=== PATIENT | female | born 1990 | race Caucasian/White ===

== ENCOUNTER 2019-11-28 05:47 | Day surgery (SDC) | payer MEDICAID ==
[~2019-11-28] VITALS: Ht 160 cm; Wt 95.5 kg
[2019-11-28 06:25] VITALS: BP 133/76; PULSE 117; TEMP 98.6
[2019-11-28] MEDS ORDERED: NEURONTIN800 MG/TAB PO (06:42)
[2019-11-28] MEDS ORDERED: COUMADIN4 MG PO (06:42)
[2019-11-28] MEDS ORDERED: ZANAFLEX 4MG TAB4 MG PO (06:43)
[2019-11-28] MEDS ORDERED: LASIX 20MG TABL20 MG PO (06:43)
[2019-11-28] MEDS ORDERED: CARAFATE 1GM1 G PO (06:44)
[2019-11-28] MEDS ORDERED: IMITREX50 MG PO (06:45)
[2019-11-28] MEDS ORDERED: ATARAX 25MG25 MG/TAB PO (06:46)
[2019-11-28] MEDS ORDERED: TESSALON P100 MG/CAP PO (06:47)
[2019-11-28] MEDS ORDERED: SINGULAIR 110 MG/TAB PO (06:47)
[2019-11-28] MEDS ORDERED: PROAIR HFA0.09 MG/AC IH (06:48)
[2019-11-28] MEDS ORDERED: PROBIOTIC ACID1 EAC3 PO (06:49)
[2019-11-28] MEDS ORDERED: CARDIZEM LA240 MG PO (06:49)
[2019-11-28] MEDS ORDERED: ELAVIL100 MG PO (06:51)
[2019-11-28] MEDS ORDERED: RT ALBUTER2.5 MG/0.5 IH (06:51)
[2019-11-28] MEDS ORDERED: DAZIDOX20 MG PO (06:52)
[2019-11-28] MEDS ORDERED: NITROSTAT0.4 MG/TAB SL (06:53)
[2019-11-28] MEDS ORDERED: ZOFRAN8 MG PO (06:54)
[2019-11-28] MEDS ORDERED: PROTONIX 40MG T40 MG PO (06:55)
[2019-11-28] MEDS ORDERED: REGLAN 10MG10 MG/TAB PO (06:55)
[2019-11-28] MEDS ORDERED: LYRICA 25MG CAP25 MG PO (06:56)
[2019-11-28] MEDS ORDERED: FOSAMAX 35MG35 MG PO (06:56)
[2019-11-28] MEDS ORDERED: FERROUS SU325 MG/TAB PO (06:57)
[2019-11-28] MEDS ORDERED: BIOFREEZE 0.2%-1 GE1 TOP (06:58)
--- NOTE | 2019-11-28 07:30 | NUR ---
Bedside cystoscopy with suprapubic catheter change completed. Assisted patient with dressing and into wheelchair.
--- NOTE | 2019-11-28 08:00 | NUR ---
Patient dismissed to home driven by brother in law and taken to the front door per wheelchair with instructions in hand.
== END 2019-11-28 08:00 | disposition home or self-care (01) ==
LOC: SDCO 05:47
DX: N31.9 Neuromuscular dysfunction of bladder, unspecified (principal); N39.0 Urinary tract infection, site not specified; D64.9 Anemia, unspecified; G89.29 Other chronic pain; K59.00 Constipation, unspecified; J44.9 Chronic obstructive pulmonary disease, unspecified; K21.9 Gastro-esophageal reflux disease without esophagitis; G43.909 Migraine, unspecified, not intractable, without status migrainosus; I47.1 Supraventricular tachycardia; M79.7 Fibromyalgia; Z86.73 Personal history of transient ischemic attack (TIA), and cerebral infarction without residual deficits; Z86.718 Personal history of other venous thrombosis and embolism; Z79.01 Long term (current) use of anticoagulants; Z88.1 Allergy status to other antibiotic agents; Z88.8 Allergy status to other drugs, medicaments and biological substances; Z80.1 Family history of malignant neoplasm of trachea, bronchus and lung

== ENCOUNTER 2021-09-09 10:09 | Day surgery (SDC) | payer MEDICAID ==
[~2021-09-09] VITALS: Ht 160 cm; Wt 98.2 kg
[2021-09-09] VITALS (10 sets, daily range): BP systolic 106–119; BP diastolic 52–84; PULSE 84–113; TEMP 96.7–97.6
[~2021-09-09 10:09] MED LIST: AMOXICILLIN 8751 TAB PO; ATARAX 25MG25 MG/TAB PO; BIOFREEZE 0.2%-1 GE1 TOP; CARAFATE 1GM1 G PO; CARDIZEM LA240 MG PO; COLACE LIQUI10 MG/ML PO; COUMADIN4 MG PO; DAZIDOX10 MG PO; DAZIDOX20 MG PO; DOXYCYCLINE HY100 MG PO; ELAVIL100 MG PO; FERROUS SU325 MG/TAB PO; FLOMAX 0.40.4 MG/CAP PO; FOSAMAX 35MG35 MG PO; IMITREX50 MG PO; LASIX 20MG TABL20 MG PO; LEVSIN 0.10.125 MG/T SL; LYRICA 25MG CAP25 MG PO; METHENMAND1 PO; NEURONTIN800 MG/TAB PO; NITROSTAT0.4 MG/TAB SL; OMNICEF 300MG300 MG PO; PREDNISONE10 MG PO; PROAIR HFA0.09 MG/AC IH; PROBIOTIC ACID1 EAC3 PO; PROTONIX 40MG T40 MG PO; REGLAN 10MG10 MG/TAB PO; RT ALBUTER2.5 MG/0.5 IH; SINGULAIR 110 MG/TAB PO; TESSALON P100 MG/CAP PO; VITAMINC1000TA PO; ZANAFLEX 4MG TAB4 MG PO; ZOFRAN8 MG PO
[2021-09-09 11:24] LABS: MEAN CELL VOLUME 84 fl (80.0-100.0); MEAN CORPUSCULAR HGB CONC 30 g/dl (33.0-37.0); MEAN PLATELET VOLUME 9.6 fl (7.4-10.4); PLATELET COUNT 520 K/mm3 (130-400); RED BLOOD COUNT 3.52 M/mm3 (4.10-5.30); REDCELL DISTRIBUTION WIDTH-CV 14.3 % (11.5-14.5)
[2021-09-09 11:27] LABS: HEMATOCRIT 29.6 % (37.0-47.0); HEMOGLOBIN 8.9 g/dl (12.5-16.0); MEAN CORPUSCULAR HEMOGLOBIN 25 pg (27-31)
[2021-09-09 11:32] LABS: INR 1.4 (0.8-3.0); PROTHROMBIN TIME 16.5 SECONDS (9.7-12.8)
[2021-09-09 11:38] LABS: BAND 2 % (0-10); BASOPHIL 3 % (0-2); LYMPHOCYTE 16 % (20.0-51.0); MYELOCYTE 2 % (0-0); NEUTROPHILS 67 % (42.0-75.2)
[2021-09-09 11:39] LABS: HYPOCHROMIA 3+; PLATELET ESTIMATE INCREASED (NORMAL)
[2021-09-09 11:40] LABS: STOMATOCYTE 1+
[2021-09-09 11:55] LABS: CALCIUM 8.6 mg/dL (8.4-10.2); CREATININE, serum 0.79 mg/dL (0.57-1.11); POTASSIUM 3.6 mmol/L (3.5-4.5)
--- NOTE | 2021-09-09 15:15 | NUR ---
PT. CALL OUT RIGHT REPORT PORT SITE WAS BURNING. ON ASSESSMENT AREA WAS EDEMATOUS AND APPEARED TO INCREASE WITH IV FLUIDS INFUSING. NO BLOOD RETURN FROM PORT. HOUSE SUP NOTIFIED AND CONFIRMED PORT WAS INFILTRATED. PORT WAS DEACCESSED. PHYSICIAN NOTIFIED. KALYANI LIVE, STARTED AN IV IN THE RIGHT FOREARM. FLUIDS AND ANTIBIOTIC WERE RESUMED THROUGH THAT SITE. CALL LIGHT IN REACH. NO FURTHER NEEDS AT THIS TIME.
--- NOTE | 2021-09-09 15:30 | NUR ---
PT TO ROOM 350 POST OP FROM CYTOSCOPY AND LEFT STENT PLACEMENT WITH LITHOTRIPSY. PT. ORIENTED BUT DROWSY. PORTACATH ON RIGHT SIDE OF CHEST PREVIOUSLY ACCESSED. SUBPUBIC CATHETER IN PLACE AND DEPENDENT TO DRAINAGE. PT. COMPLAINING OF PAIN AND NAUSEA. MEDICATIONS GIVEN. SEE EMAR. PT. ORIENTED TO ROOM. CALL LIGHT WITH IN REACH. NO FURTHER NEEDS AT THIS TIME.
--- NOTE | 2021-09-09 22:46 | NUR ---
PATIENT IN BED AT ROOM ENTRY. ALERT AND BUT SOME CONFUSION NOTED. C/O HER SUPRAPUBIC CATHETER LEAKING AT SITE, SITE LOOKS GOOD, DRAINING WELL, DRAIN GAUZE APPLIED. MEDS ADMINISTERED PER EMAR. PRN MORPHINE AND ZOFRAN ALSO GIVEN. R CHEST PORT SITE CDI, NO DRAINAGE NOTED ON GAUZE, SWELLING SEEMS MINIMAL AT THIS TIME. R FA IV WITH NS INFUSING. 3L O2 VIA NC. DENIES ADDITIONAL NEEDS AT THIS TIME. CALL LIGHT IN REACH.
[2021-09-10 00:04] VITALS: BP 116/70; PULSE 81; TEMP 97.8
[2021-09-10 04:35] VITALS: BP 124/76; PULSE 63; TEMP 97.3
[2021-09-10 07:04] VITALS: BP 118/80; PULSE 88
--- NOTE | 2021-09-10 09:19 | NUR ---
DR. MAJANO AND NAHUM WHITTINGTON IN TO SEE PT. DISCHARGE INSTRUCTIONS RECIEVED. PT PLANS ON DISCHARGE THIS AM.
--- NOTE | 2021-09-10 10:26 | NUR ---
Initial visit; Patient thanked Gold Buyer for visit and Gold Buyer offering God's blessings and her Card letting patient know that [facility] is available at [facility].
--- NOTE | 2021-09-10 11:14 | NUR ---
SW met with the patient to discuss discharge plan. The patient lives in [place] with her sister, Israel Lipscomb (ph#[phone]). She reports needing assistance with bathing and utilizes a wheelchair. She states that her sister helps her with bathing and that she has home health services from [facility] for her catheter. The patient's PCP is Dr. Jovani Ospina and she receives her medications from [facility] in [place]. The patient does not have a DPOA-HC, but she states that she has the paperwork and plans on completing it at some time. She states that she is not , does not have any children, her mother and father are . She states that she has two siblings. The patient plans on returning home with her sister and resuming services from [facility] upon discharge today. No additional needs at this time. *Discharge plan: home with sister*
--- NOTE | 2021-09-10 11:53 | NUR ---
DISCHARGE INSTRUCTIONS REVIEWED WITH PT, QUESTIONS SOLICITED AND ANSWERED. PT LEFT INDEPENDENTLY IN OWN WHEEL CHAIR WITH FAMILY.
== END 2021-09-10 11:30 | disposition home or self-care (01) ==
LOC: SDCO 10:09 → SURG 14:45 → SDCO 09-10 11:30
PROVIDERS: Registered Nurse
DX: N20.1 Calculus of ureter (principal); N39.0 Urinary tract infection, site not specified; R39.14 Feeling of incomplete bladder emptying
CPT/HCPCS: OP; C1769; C2617; J0690; J1100; J1170; J1335; J1885; J2270; J2405; J2704; J3010; J7120; Q9967

== ENCOUNTER 2022-08-25 12:29 | Day surgery (SDC) | payer MEDICAID ==
[2022-08-25] VITALS (9 sets, daily range): BP systolic 95–140; BP diastolic 58–82; PULSE 93–115; TEMP 97.8–98.8
[~2022-08-25] VITALS: Ht 160 cm; Wt 86.4 kg
[~2022-08-25 12:29] MED LIST changes: +INVANZ INJ1 G/VIAL IV; +LANOXIN 0.25M0.25 MG PO
--- NOTE | 2022-08-25 13:38 | NUR ---
PORT ACCESSED ON PATIENT RIGHT UPPER CHEST BY THIS NURSE USING STERILE TECHNIQUE, AREA CLEANSED PRIOR WITH CHLORHEXADINE SCRUB. PATIENT TOLERATED PROCEDURE WELL, 1 INCH RAY NEEDLE USED TO ACCESS, BLOOD RETURN OBTAINED IMMEDIATELY AFTER ACCESS AND PORT FLUSHED WITH 10CC OF NS. CLEAR DRESSING APPLIED OVER SITE. PATIENT STATED THAT SHE FELT NO DISCOMFORT DURING PROCEDURE.
[2022-08-25] MEDS ORDERED: COUMADIN PO (14:32)
[2022-08-25] MEDS ORDERED: COUMADIN 5MG5 MG/TAB PO (14:34)
[2022-08-25] MEDS ORDERED: VITAMIN D PO (14:35)
--- NOTE | 2022-08-25 18:33 | NUR ---
PATIENT BROUGHT TO FLOOR AT APPROXIMATELY 1535. SUPRAPUBIC CATHETER IN PLACE. PORTACATH ACCESSED WITH LR RUNNING AT 125/HOUR. PATIENT REPORTS PAIN 8/10, REQUESTS PAIN MEDICATION. ASSESSMENT PERFORMED. MEDS ADMINISTERED. PATIENT IN ROOM, CALL LIGHT NEAR.
[2022-08-25 19:29] LABS: URINE APPEARANCE Clear (CLEAR/HAZY); URINE COLOR Yellow (YELLOW)
[2022-08-25 19:30] LABS: COLLECTION METHOD CLEAN CATCH; URINE BLOOD 3+ (NEGATIVE); URINE GLUCOSE Negative (NEGATIVE); URINE KETONE Negative (NEGATIVE); URINE NITRATE Negative (NEGATIVE); URINE PROTEIN(semi-quant) Negative (NEGATIVE); URINE UROBILINOGEN 0.2 E.U/dL (0.2-1.0)
[2022-08-25 19:31] LABS: MUCOUS Present (NOT PRESENT); SQUAMOUS EPITHELIAL None Seen /hpf (0-10); URINE BACTERIA Rare /hpf (NONE SEEN)
--- NOTE | 2022-08-25 20:00 | NUR ---
PATIENT IS A&O. NOTED ELEVATED HR IN THE LOW 100'S. 02 @ 3L PER NC WITH SATS IN MID TO UPPER 90'S. PATIENT WEARS 3L OF OXYGEN AT HOME. ALL OTHER VSS. C/O PAIN FROM RENAL STENT REMOVAL. GAVE PRN OXYCODONE AND PRN LEVSIN WITH HS MEDS. SUPER PUBIC RIVERS TO DD WITH MOD AMOUNTS OF AYAD, CLOUDY URINE NOTED. IV FLUIDS INFUSING VIA PUMP INTO RIGHT CHEST PORTACATH. GENERAL DIET. CONTACT FOR POSITIVE MRSA & STAPH. HEAD TO TOE ASSESSMENT COMPLETE. PATIENT IS WC BOUND. SCD'S CURRENTLY OFF PER PATIENT. NO OTHER NEEDS AT THIS TIME. CALL LIGHT IN REACH.
[2022-08-26 03:26] VITALS: BP 108/62; PULSE 69; TEMP 97.6
[2022-08-26 06:56] LABS: BASO % 0.3 % (0.0-2.0); EOS % 0.2 % (0.0-4.0); GRAN # 8.4 K/mm3 (1.4-6.5); GRAN % 74.8 % (42.2-75.2); HEMOGLOBIN 10.5 g/dl (12.5-16.0); LYMPH # 1.9 K/mm3 (1.2-3.4); LYMPH % 16.5 % (20.0-51.0); MEAN CELL VOLUME 90 fl (80.0-100.0); MEAN CORPUSCULAR HEMOGLOBIN 29 pg (27-31); MEAN CORPUSCULAR HGB CONC 32 g/dl (33.0-37.0); MEAN PLATELET VOLUME 10.1 fl (7.4-10.4); MONO # 0.8 K/mm3 (0.1-0.6); MONO % 7.1 % (1.7-9.3); PLATELET COUNT 346 K/mm3 (130-400); RED BLOOD COUNT 3.62 M/mm3 (4.10-5.30); REDCELL DISTRIBUTION WIDTH-CV 13.1 % (11.5-14.5)
[2022-08-26 07:00] LABS: HEMATOCRIT 32.6 % (37.0-47.0)
[2022-08-26 07:16] LABS: CALCIUM 9.3 mg/dL (8.4-10.2); CREATININE, serum 0.92 mg/dL (0.57-1.11); POTASSIUM 4.2 mmol/L (3.5-4.5)
[2022-08-26 07:22] LABS: INR 1.2 (0.8-3.0); PROTHROMBIN TIME 14.2 SECONDS (9.7-12.8)
[2022-08-26 07:54] VITALS: BP 105/49; PULSE 67; TEMP 97.6
--- NOTE | 2022-08-26 08:07 | NUR ---
PATIENT ALERT AND ORIENTED X4. VSS. PATIENT HERE FOR URETERAL STENT REPLACEMENT. PATIENT DROWSY THIS MORNING. PATIENT ON 3L PER NC WITH O2 SAT AT 99%. SUPRAPUBIC CATH IN PLACE WITH AYAD,CLOUDY OUTPUT. LR RUNNING AT 125ML/HOUR IN RIGHT UPPER CHEST PORTACATH. CALL LIGHT IN REACH.
[2022-08-26 12:00] VITALS: BP 90/48; PULSE 100
[2022-08-26 15:45] VITALS: BP 102/62; PULSE 80; TEMP 97.8
--- NOTE | 2022-08-26 16:23 | NUR ---
AICHA DEACCESSED. BANDAID APPLIED. PATIENT TOLERATED. DISCHARGE INSTRUCTIONS PROVIDED. PATIENT EDUCATION GIVEN. FOLLOW UP APPOINTMENT DISCUSSED. PATIENT EDUCATED ON USE OF TYLENOL/MOTRIN FOR PAIN. PATIENT DENIES ANY QUESTIONS OR CONCERNS.
--- NOTE | 2022-08-26 17:33 | NUR ---
PATIENT ESCORTED OUT VIA WHEELCHAIR.
== END 2022-08-26 17:15 | disposition home or self-care (01) ==
LOC: SDCO 12:29 → SURG 15:29 → SDCO 16:15
PROVIDERS: Internal Medicine
DX: N13.5 Crossing vessel and stricture of ureter without hydronephrosis (principal); N31.9 Neuromuscular dysfunction of bladder, unspecified; N39.0 Urinary tract infection, site not specified; B95.62 Methicillin resistant Staphylococcus aureus infection as the cause of diseases classified elsewhere; A49.02 Methicillin resistant Staphylococcus aureus infection, unspecified site; G43.909 Migraine, unspecified, not intractable, without status migrainosus; K29.70 Gastritis, unspecified, without bleeding; J96.10 Chronic respiratory failure, unspecified whether with hypoxia or hypercapnia; F11.20 Opioid dependence, uncomplicated; M79.7 Fibromyalgia; I47.1 Supraventricular tachycardia; N20.0 Calculus of kidney; E66.9 Obesity, unspecified; Z88.1 Allergy status to other antibiotic agents; I69.364 Other paralytic syndrome following cerebral infarction affecting left non-dominant side; G82.20 Paraplegia, unspecified; Z79.01 Long term (current) use of anticoagulants; Z79.899 Other long term (current) drug therapy; Z99.3 Dependence on wheelchair
CPT/HCPCS: OP; A9284; C1769; C2617; J0690; J1100; J1170; J1335; J1644; J2270; J2405; J2704; J3010; J7120; Q9967